=== PATIENT | male | born 1950 | race Caucasian/White ===

== ENCOUNTER → 2016-11-05 10:30 | Outpatient (CLI) | payer MEDICARE, OTHER ==
[2015-09-23 09:55] VITALS: BMI 27.0
[~2016-11-05 10:30] MED LIST: COZAAR25 MG PO; HYDROCHLOROTH12.5 M1 PO; HYDROCODONE-APA1 TAB PO; PRAVACHOL40 MG PO; VOLTAREN75 MG PO
== END | disposition home or self-care (01) ==
LOC: D.MRI 10:30
DX: M25.562 Pain in left knee (principal)